=== PATIENT | female | born 1970 | race Caucasian/White ===

== ENCOUNTER → 2016-10-01 | Outpatient (CLI) | payer BC ==
--- NOTE | 2016-10-01 11:38 | DI ---
LEFT FOOT, 10/01/2016 8:41 AM: Clinical History: Left foot pain. Previous Exam: None at this facility. 3 views are submitted. There is a nondisplaced obliquely oriented fracture through the midshaft of th e proximal phalanx of the fourth toe. No other abnormality is identified. Reading: Fracture of the midshaft of the proximal phalanx of the fourth toe, nondisplaced.
== END ==
LOC: MOB RAD 09:42
PROVIDERS: ATTEND Physician Assistant
DX: M79.672 Pain in left foot (principal); M79.89 Other specified soft tissue disorders; S92.525A Nondisplaced fracture of middle phalanx of left lesser toe(s), initial encounter for closed fracture; W22.8XXA Striking against or struck by other objects, initial encounter; Y93.89 Activity, other specified
CPT/HCPCS: 73630

== ENCOUNTER → 2016-10-26 | Outpatient (CLI) | payer BC ==
[2016-10-26 08:09] LABS: BASOPHILS # (AUTO) 0.05 10*3/UL; BASOPHILS % (AUTO) 0.3 % (0-1); HEMATOCRIT 43.4 % (37.0-47.0); HEMOGLOBIN 14.1 g/dL (12.0-16.0); IMM GRAN % (AUTO) 0.3 % (0-5); IMM GRAN# (AUTO) 0.04 10*3/UL; LYMPHOCYTES # (AUTO) 1.43 10*3/uL; LYMPHOCYTES % (AUTO) 9.6 % (10-50); MEAN CORPUSCULAR HGB CONC 32.5 g/dL (33-37); MONOCYTES # (AUTO) 0.94 10*3/UL (0.3-0.8); MONOCYTES % (AUTO) 6.3 % (5-15); NEUTROPHILS # (AUTO) 12.35 10*3/UL; NEUTROPHILS % (AUTO) 82.5 % (50-80); RDW COEFFICIENT OF VARIATION 13.1 % (11.5-14.5); RED BLOOD COUNT 4.86 10^6/uL (4.20-5.40); WHITE BLOOD COUNT 14.96 10^3/uL (4.8-10.8)
[2016-10-26 08:11] LABS: BILIRUBIN,URINE NEGATIVE (NEG); CLARITY,URINE Slightly Clo (CLEAR); GLUCOSE, URINE (UA) NEGATIVE (NEG); LEUKOCYTE ESTERASE ,URINE NEGATIVE (NEG); NITRATE,URINE NEGATIVE (NEG); PH,URINE 5.5 (5.0-8.5); PROTEIN,URINE NEGATIVE (NEG); UROBILINOGEN,URINE 0.2 EU/dL (0.2)
[2016-10-26 08:13] LABS: OCCULT BLOOD,URINE TRACE (NEG)
[2016-10-26 08:13] LABS: PLATELET MORPHOLOGY COMMENT NORMAL MORPHOLOGY (NORM)
[2016-10-26 08:19] LABS: BACTERIA,URINE RARE; SQUAMOUS EPITHELIAL CELL,UR MANY
[2016-10-26 08:29] LABS: BILIRUBIN,TOTAL 0.5 mg/dL (0.3-1.2); CALCIUM 10.4 mg/dL (8.7-10.7); POTASSIUM 3.8 meq/L (3.8-5.2); TOTAL PROTEIN 7.5 g/dL (6.1-8.0)
--- NOTE | 2016-10-26 08:41 | DI ---
CT HEAD SCAN WITHOUT IV CONTRAST, 10/26/2016 7:57 AM : Clinical History: New onset seizure. Previous Exam: December 28, 2015 Scans are obtained from the foramen magnum to the vertex without IV contrast. The 4th, 3rd, and lateral ventricles are of normal size, shape, position, and contour. There are no abnormal areas of increased or decreased density. There is no intracranial hemorrhage. Bone window evaluation is normal. The paranasal sinuses are normal. READING: Normal non contrast CT head scan.
[2016-10-26 08:44] LABS: FREE T4 (FREE THYROXINE) 0.82 ng/dL (0.93-1.71)
[2016-10-26 11:32] LABS: URINE SAMPLE TYPE CLEAN CATCH URINE
== END ==
LOC: LAB 07:39
PROVIDERS: ATTEND Physician Assistant
DX: R56.9 Unspecified convulsions (principal); E03.9 Hypothyroidism, unspecified; R07.9 Chest pain, unspecified; R06.02 Shortness of breath; I27.2 Other secondary pulmonary hypertension; I35.0 Nonrheumatic aortic (valve) stenosis
CPT/HCPCS: 36415; 70450; 80053; 81001; 84146; 84439; 84443; 85025

== ENCOUNTER → 2016-11-03 | Outpatient (CLI) | payer BC ==
[2016-11-03 12:10] LABS: BILIRUBIN,URINE NEGATIVE (NEG); CLARITY,URINE CLEAR (CLEAR); GLUCOSE, URINE (UA) NEGATIVE (NEG); LEUKOCYTE ESTERASE ,URINE NEGATIVE (NEG); NITRATE,URINE NEGATIVE (NEG); OCCULT BLOOD,URINE NEGATIVE (NEG); PH,URINE 6.5 (5.0-8.5); PROTEIN,URINE NEGATIVE (NEG); UROBILINOGEN,URINE 0.2 mg/dL (0.2)
[2016-11-03 12:35] LABS: URINE SAMPLE TYPE CLEAN CATCH URINE
[2016-11-03 15:24] LABS: BACTERIA,URINE RARE; SQUAMOUS EPITHELIAL CELL,UR MODERATE
== END ==
LOC: MOB LAB 11:06
PROVIDERS: ATTEND Student in an Organized Health Care Education/Training Program
DX: R31.9 Hematuria, unspecified (principal)
CPT/HCPCS: 81001

== ENCOUNTER 2016-12-10 23:32 | Emergency (ER) | payer BC ==
[2016-12-10 23:45] VITALS: TEMP 97.8
[2016-12-10] MEDS ORDERED: NORMAL SALINE 10 ML SYRINGE FLUSH IVP PRN (23:46)
[2016-12-10] MEDS ORDERED: ONDANSETRON 4 MG/2 ML VIAL IVP ONE (23:46)
[2016-12-10] MEDS ORDERED: KETOROLAC 15 MG/1 ML VIAL IVP ONE (23:46)
[2016-12-10] MEDS ORDERED: Sodium Chloride 0.9% 1,000 ML PRIMARY IV ONE (23:46)
[2016-12-10] MEDS ORDERED: MORPHINE SULFATE 2 MG/1 ML IVP ONE (23:46)
[2016-12-11 00:03] LABS: BASOPHILS # (AUTO) 0.07 10*3/UL; BASOPHILS % (AUTO) 0.8 % (0-1); EOSINOPHILS # (AUTO) 0.35 10*3/UL; EOSINOPHILS % (AUTO) 4.2 % (0-8); LYMPHOCYTES # (AUTO) 2.62 10*3/uL; MEAN CORPUSCULAR HEMOGLOBIN 28.8 PG (27-31); MEAN CORPUSCULAR HGB CONC 31.7 g/dL (33-37); MEAN CORPUSCULAR VOLUME 90.7 FL (81-99); MEAN PLATELET VOLUME 9.4 FL (7.4-12.2); MONOCYTES # (AUTO) 0.71 10*3/UL (0.3-0.8); MONOCYTES % (AUTO) 8.6 % (5-15); NEUTROPHILS # (AUTO) 4.52 10*3/UL; NEUTROPHILS % (AUTO) 54.7 % (50-80); RED BLOOD COUNT 4.52 10^6/uL (4.20-5.40)
[2016-12-11 00:05] LABS: PLATELET MORPHOLOGY COMMENT NORMAL MORPHOLOGY (NORM); RBC MORPHOLOGY COMMENT NORMAL MORPHOLOGY (NORM); WBC MORPHOLOGY COMMENT NORMAL MORPHOLOGY (NORM)
[2016-12-11 00:09] LABS: BLOOD UREA NITROGEN 22 mg/dL (7-22); C-REACTIVE PROTEIN 1.4 mg/dL (0.0-0.9); CALCIUM 9.7 mg/dL (8.7-10.7); EST GLOMERULAR FILTRATION > 60 (>60 ml/min/1.73m(2)); MAGNESIUM 1.9 mg/dL (1.6-2.4); SERUM ALBUMIN 3.7 g/dL (3.5-4.8)
[2016-12-11 00:15] VITALS: RESP 18
--- NOTE | 2016-12-11 00:46 | DI ---
HISTORY: Right-sided pleuritic chest pain. COMPARISON: None available. TECHNIQUE: PA and Lateral radiographs were obtained of the chest. FINDINGS: No focal airspace opacity, significant pleural effusion or pneumothorax. Normal heart siz e. Multilevel thoracic degenerative changes. IMPRESSION: 1. No acute cardiopulmonary disease.
--- NOTE | 2016-12-11 01:49 | DI ---
HISTORY: Right-sided chest pain. No known trauma. Elevated d-dimer of 1.1. COMPARISON: None available. TECHNIQUE: IV contrast administration of volume of iodine-based contrast medium (isovue 100ml). CTA chest to opacify pulmonary arteries. MPR. Additional MIP images obtained. FINDINGS: Tubes/Lines: None. Lungs: Lungs are without focal consolidation, pleural effusion or pneumothorax. Bibasilar atelectas is is noted. Pulmonary emboli: No evidence of acute or chronic pulmonary emboli. Distal segmental/subsegmental br anch vessels incompletely opacified. Heart: No cardiomegaly or pericardial effusion. Vessels: Thoracic aorta and coronary arteries without gross abnormality. Mediastinum: No mediastinal adenopathy by size criteria. Abdomen: Limited evaluation of the upper abdominal viscera without acute abnormality identified. Sternum, ribs and thoracic spine: No acute osseous finding identified. Multilevel thoracic spine degenerative changes. IMPRESSION: 1. No central pulmonary emboli. 2. No acute cardiopulmonary process identified.
--- NOTE | 2016-12-11 01:50 | PDOC ---
General Adult HPI - General Chief Complaint: General Medical Stated Complaint: RIGHT RIB PAIN AFTER COUGHING Date Seen by Provider: 12/10/16 Time Seen by Provider: 23:40 Source: POSITIVE: Patient Exam Limitations: POSITIVE: No limitations Nurse's Notes Reviewed & Considered: Yes - History of Present Illness Initial Comment: The patient is a 46-year-old female who presents to the emergency department with right-sided chest wall and chest pain. She states that for the past week to 10 days she has had some upper respiratory symptoms including cough and congestion. She states that a couple of days ago she was coughing quite hard and subsequently developed some pain in her right lower chest. Her cough seems to have improved however this pain has intensified. She describes the pain as a sharp pain just underneath her right breast. This pain is worsened with taking a breath, coughing or with movement. She denies any associated abdominal pain, fevers or chills, left-sided chest pain, back pain or any other associated complaints. Have you received a tetanus shot in the past 10 years?: Yes - Patient Home Medications Home Medications: Home Medications EPINEPHrine Auto-Injector [Epipen Inj] 0.3 mg IM PRN PRN 07/16/12 Fluticasone Propionate [Flonase Allergy Relief] 2 spr AYO BID #1 spr 10/29/16 Guaifenesin/Codeine Phos [Cheratussin Ac Syrup] 5 - 10 ml PO Q4-6H #120 ml 10/29 Budesonide/Formoterol Fumarate [Symbicort] Sample #1 11/03/16 Levothyroxine Sodium 1 tab PO DAILY #90 tab 11/03/16 Hydrocodone/Acetaminophen [[place] 7.5-325 Tablet] 1 - 2 each PO Q6H PRN #15 tablet 12/11/16 Naproxen 500 mg PO Q12H PRN #20 tab 12/11/16 - Patient Allergies Allergies/Adverse Reactions: Allergies Allergy/AdvReac Type Severity Reaction Status Date / Time peanut Allergy Severe ANAPHLAXIS Verified 12/10/16 23:36 dicyclomine HCl [From Bentyl] AdvReac Mild UNKNOWN Verified 12/10/16 23:36 Past Medical History - heen HEENT History: Denies History Cardiovascular History: Hypertension, Other (please comment) Additional Cardiovasular History: aortic valve stenosis Respiratory History: Other (please comment) Additional Respiratory History: ANAPHYLAXIS TO PEANUTS Gastrointestinal History: Denies History Genitourinary History: Denies History Endocrine History: Hypothyroidism Musculoskeletal History: Osteoarthritis 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) Neurological History: Migraines Blood Disorders: Denies History Psychiatric History: Denies History History of Sexually Transmitted Diseases: No Female Reproductive History: Denies History Obstetrical History: Denies History Cancer History: Denies History In Past Year Been Physically Harmed or Verbally Threatened: No History of MDRO: No History of Other Communicable Diseases: No Tobacco Use: Never Smoker Alcohol Use: None Substance Use Type: None Previous Surgical History: Yes Type / Date of Surgery: FULL HYSTERECTOMY, RIGHT FOOT TENDON REPAIR Anesthesia Reactions: No Malignant Hyperthermia: No Significant Family History: No pertinent family hx Past Medical History Reviewed: Reviewed - No Changes ROS - Limitations ROS Limitations: No Limitations Constitution: DENIES: Chills, Fever Cardiovascular: REPORTS: Chest Pain (Right-sided pleuritic pain). DENIES: Edema Respiratory: REPORTS: Cough Non Productive (Seems to be getting better), Hurts To Breathe. DENIES: Shortness Of Breath Neurological: REPORTS: Denies Neuro Symptoms Gastrointestinal: DENIES: Abdominal Pain, Nausea, Vomitting Endocrine: REPORTS: Denies Symptoms Musculoskeletal: REPORTS: Denies MS Symptoms. DENIES: Calf Pain Eyes: REPORTS: Denies Symptoms ENT: REPORTS: Congestion (Seems to be getting better) Skin: DENIES: Rash General Adult Exam - General Appearance General Appearance: POSITIVE: Alert, Cooperative, No Acute Distress - HEENT HEENT: POSITIVE: Head Inspection Nml, Eyes Inspection Nml, Ears Inspection Nml, Pharynx Inspect. Nml, PERRL, EOMI - Neck Neck: POSITIVE: Normal Inspection. NEGATIVE: Lymphadenopathy - Respiratory Respiratory: POSITIVE: No Respiratory Distress, Breath Sounds Normal, Other ( She does have tenderness to the right lower anterior chest wall just underneath the right breast) - Cardiovascular Cardiovascular: POSITIVE: Regular Rate & Rhythm, No Murmur Peripheral Pulses: Dorsalis-pedis (R): 2+, Dorsalis-pedis (L): 2+ - Abdomen Abdomen: Soft: (All Quadrants), Denies Tenderness: (All Quadrants), No Distention: (All Quadrants) - Skin Skin: POSITIVE: Normal Color, No Rash - Extremities Extremity: Normal ROM: (All Extremities), Normal Inspection: (All Extremities) - Neurological / Psychological Neurological: POSITIVE: Oriented X3, Motor Normal, Sensation Normal General Adult Progress - Results Reviewed by me Xrays/CTs/US Reviewed by me: Yes Discussed with Radiologist: Yes Radiology Findings: Chest x-ray shows no acute findings. CT PE protocol is negative for PE, no other acute findings per radiologist. Lab Results Reviewed: Yes Lab Results:: Laboratory Results 12/10/16 Range/Units 23:55 WBC 8.28 (4.8-10.8) 10^3/uL RBC 4.52 (4.20-5.40) 10^6/uL Hgb 13.0 (12.0-16.0) g/dL Hct 41.0 (37.0-47.0) % MCV 90.7 (81-99) FL MCH 28.8 (27-31) PG MCHC 31.7 L (33-37) g/dL RDW Std Deviation 45.6 (39-50) fL RDW Coeff of Samia 14.1 (11.5-14.5) % Plt Count 269 (140-350) 10*3/uL MPV 9.4 (7.4-12.2) FL Immature Gran % (Auto) 0.1 (0-5) % Neut % (Auto) 54.7 (50-80) % Lymph % (Auto) 31.6 (10-50) % [place] % (Auto) 8.6 (5-15) % Eos % (Auto) 4.2 (0-8) % Baso % (Auto) 0.8 (0-1) % Immature Gran # (Auto) 0.01 10*3/UL Neut # (Auto) 4.52 10*3/UL Lymph # (Auto) 2.62 10*3/uL [place] # (Auto) 0.71 (0.3-0.8) 10*3/UL Eos # (Auto) 0.35 10*3/UL Baso # (Auto) 0.07 10*3/UL WBC Morphology Comment Normal morphology (NORM) Plt Morphology Comment Normal morphology (NORM) RBC Morph Comment Normal morphology (NORM) D-Dimer 1.10 H (0.00-0.59) mg/L Sodium 140 (135-145) meq/L Potassium 3.8 (3.8-5.2) meq/L Chloride 108 (98-112) meq/L Carbon Dioxide 24 (23-33) meq/L Anion Gap 8 (5-20) BUN 22 (7-22) mg/dL Creatinine 0.8 (0.50-1.20) mg/dL Estimated GFR > 60 (>60 ml/min/1.73m(2)) BUN/Creatinine Ratio 27.50 H (6-20) Glucose 101 (78-110) mg/dL Calculated Osmolality 292.0 (267-292) mOsm/kg Calcium 9.7 (8.7-10.7) mg/dL Magnesium 1.9 (1.6-2.4) mg/dL Total Bilirubin 0.3 (0.3-1.2) mg/dL AST 28 (8-39) IU/L ALT 34 (9-52) IU/L Alkaline Phosphatase 119 (38-126) IU/L C-Reactive Protein 1.4 H (0.0-0.9) mg/dL Total Protein 6.7 (6.1-8.0) g/dL Albumin 3.7 (3.5-4.8) g/dL Globulin 3.0 (2.50-4.10) g/dL Albumin/Globulin Ratio 1.20 L (1.3-2.0) mg/g - Patient's Progress MDM / ED Course: On presentation to the emergency room she is complaining of a pleuritic right- sided sharp chest pain. Vital signs including oxygen saturations and temperature were normal. Her chest x-ray was unremarkable and her blood work was all essentially unremarkable except for an elevated d-dimer. Subsequent CTA was negative for PE. She did receive Toradol 15 mg IV as well as morphine and Zofran for initial pain control. She stated that this took the edge off her pain. Her presentation is consistent with pleurisy and she did have a recent URI which is the likely etiology. It is possible she could have some component of chest wall pain or even a nondisplaced rib fracture from coughing. She was prescribed naproxen 500 mg twice a day as needed for pain as well as [place] as needed for severe pain. She is advised return to the emergency room if increased pain, shortness of breath, fever or productive cough, any worsening or change in symptoms. Recommend follow-up with primary care in 3-5 days. - Consult Counseled: POSITIVE: Patient, RE: Lab Results, RE: Radiology Results, RE: DX, RE : Need for F/U Patient Care Time - Estimated PCT Patient Care Time (In Minutes): 30 Vital Signs - Recent Vital Signs Vital Signs: Vital Signs (Last 8 hours) Temp Pulse Resp BP Pulse Ox 12/11/16 02:21 96 12/11/16 00:14 18 89 12/10/16 23:34 97.8 F 102 H 16 114/77 95 - VS Reviewed Vital Signs Reviewed: Yes Discharge Clinical Impression: Pleurisy Discharge Disposition: Discharged to Home Condition: Stable Prescriptions / Orders: Naproxen 500 mg PO Q12H PRN #20 tab PRN Reason: Pain Hydrocodone/Acetaminophen [[place] 7.5-325 Tablet] 1 - 2 each PO Q6H PRN #15 tablet PRN Reason: Pain Patient Instructions Given at Discharge: Pleurisy (ED) Additional Instructions: The CAT scan of your lungs did not reveal any evidence of blood clot or obvious fractured rib. The sharp right-sided pain is caused by pleurisy which may be related to your recent upper respiratory infection. You have been prescribed naproxen 500 mg twice a day with food which is a prescription anti- inflammatory. In addition you have been given [place] 7.5/325 which he can take one or 2 every 6 hours as needed for pain. Return to the emergency room if increased pain, fever, productive cough, any worsening or change in symptoms. Recommend follow-up with primary care in 5-7 days. Follow Up With: BRENDEN PEGUERO [Primary Care Provider] -
[2016-12-11] MEDS ORDERED: HYDROcodone-APAP 7.5 MG-325 MG TABLET PO SCH (02:15)
== END 2016-12-11 02:21 | disposition home or self-care (01) ==
LOC: ER 23:32
DX: R09.1 Pleurisy (principal); R05 Cough
CPT/HCPCS: 71020; 71275; 80053; 83735; 85025; 85379; 86140; 96374; 96375; 99283; J1885; J2270; J2405; J7030

== ENCOUNTER 2016-12-12 14:50 | Emergency (ER) | payer BC ==
[2016-12-12] MEDS ORDERED: Sodium Chloride 0.9% 1,000 ML PRIMARY IV ONE (15:10)
[2016-12-12] MEDS ORDERED: NORMAL SALINE 10 ML SYRINGE FLUSH IVP PRN (15:10)
[2016-12-12] MEDS ORDERED: ONDANSETRON 4 MG/2 ML VIAL IVP ONE (15:12)
[2016-12-12] MEDS ORDERED: HYDROmorphone 2 MG/1 ML IVP ONE (15:12)
--- NOTE | 2016-12-12 15:18 | PDOC ---
General Adult HPI - General Chief Complaint: General Medical Stated Complaint: RIB PAIN Date Seen by Provider: 12/12/16 Time Seen by Provider: 15:05 Source: POSITIVE: Patient Exam Limitations: POSITIVE: No limitations Nurse's Notes Reviewed & Considered: Yes - History of Present Illness Initial Comment: The patient is a 46-year-old female who is reevaluated in the emergency room with right-sided chest wall pain. She had developed right sided chest pain underneath the right breast after several days of coughing last week. She was evaluated here in the emergency room 2 nights ago with this complaint. Her lab work was essentially unremarkable at that time except for a mildly elevated d- dimer. She had a chest x-ray that was normal as well as a CTA which did not reveal any evidence of clot. She was diagnosed with pleurisy/chest wall pain and prescribed naproxen as well as hydrocodone. She states that the hydrocodone knocks her out and then naproxen does not seem to be helping at all. She has continued pain in the same location and to the same intensity as she has been having over the weekend. In addition now she has some swelling in both of her feet and legs. She does have a known history of aortic stenosis and is in the process of being evaluated for surgery on her valve. She states that the pain is primarily located underneath the right breast and is worse with coughing or taking a deep breath. Her cough is improved significantly from last week. She denies fevers or chills or productive cough, abdominal pain or increased shortness of breath. She states that the pain does occasionally radiate through to her back on the right side as well. Have you received a tetanus shot in the past 10 years?: Yes - Patient Home Medications Home Medications: Home Medications EPINEPHrine Auto-Injector [Epipen Inj] 0.3 mg IM PRN PRN 07/16/12 Levothyroxine Sodium 1 tab PO DAILY #90 tab 11/03/16 Hydrocodone/Acetaminophen [[place] 7.5-325 Tablet] 1 - 2 each PO Q6H PRN #15 tablet 12/11/16 Naproxen 500 mg PO Q12H PRN #20 tab 12/11/16 Diclofenac Sodium 75 mg PO BID PRN #20 tablet. 12/12/16 Oxycodone HCl/Acetaminophen [Percocet 7.5-325 Mg Tablet] 1 - 2 each PO Q6H PRN # 15 tablet 12/12/16 - Patient Allergies Allergies/Adverse Reactions: Allergies Allergy/AdvReac Type Severity Reaction Status Date / Time peanut Allergy Severe ANAPHLAXIS Verified 12/12/16 15:02 dicyclomine HCl [From Bentyl] AdvReac Mild UNKNOWN Verified 12/12/16 15:02 Past Medical History - heen HEENT History: Denies History Cardiovascular History: Hypertension, Other (please comment) Additional Cardiovasular History: aortic valve stenosis Respiratory History: Other (please comment) Additional Respiratory History: ANAPHYLAXIS TO PEANUTS Gastrointestinal History: Denies History Genitourinary History: Denies History Endocrine History: Hypothyroidism Musculoskeletal History: Osteoarthritis 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) Neurological History: Migraines Blood Disorders: Denies History Psychiatric History: Denies History History of Sexually Transmitted Diseases: No Cancer History: Denies History History of MDRO: No History of Other Communicable Diseases: No Alcohol Use: None Substance Use Type: None Previous Surgical History: Yes Type / Date of Surgery: FULL HYSTERECTOMY, RIGHT FOOT TENDON REPAIR Anesthesia Reactions: No Malignant Hyperthermia: No Significant Family History: No pertinent family hx Past Medical History Reviewed: Reviewed - No Changes ROS - Limitations ROS Limitations: No Limitations Constitution: DENIES: Chills, Fever Cardiovascular: REPORTS: Chest Pain (Right-sided pleuritic pain), Edema Respiratory: REPORTS: Cough Non Productive (Her cough is much improved from last week and is very minimal at this point), Hurts To Breathe. DENIES: Cough Productive, Shortness Of Breath Neurological: REPORTS: Denies Neuro Symptoms Gastrointestinal: DENIES: Abdominal Pain, Nausea, Vomitting Musculoskeletal: REPORTS: Lower Extremity Swelling (Bilateral) Eyes: REPORTS: Denies Symptoms ENT: REPORTS: Denies Symptoms Skin: DENIES: Rash General Adult Exam - General Appearance General Appearance: POSITIVE: Alert, Cooperative, No Acute Distress - HEENT HEENT: POSITIVE: Head Inspection Nml - Neck Neck: POSITIVE: Normal Inspection. NEGATIVE: Lymphadenopathy - Respiratory Respiratory: POSITIVE: No Respiratory Distress, Breath Sounds Normal - Cardiovascular Cardiovascular: POSITIVE: Regular Rate & Rhythm, Murmur (She does have a 3/6 systolic murmur heard best over the left sternal border) Peripheral Pulses: Dorsalis-pedis (R): 2+, Dorsalis-pedis (L): 2+ - Abdomen Abdomen: Soft: (All Quadrants), Denies Tenderness: (All Quadrants), No Hepatomegaly: (All Quadrants), No Distention: (All Quadrants) - Skin Skin: POSITIVE: Normal Color, No Rash - Extremities Extremity: Normal ROM: (All Extremities) Additional Extremities Details: Bilateral lower extremity edema - Neurological / Psychological Neurological: POSITIVE: Other (No focal neurologic deficits) General Adult Progress - Results Reviewed by me Xrays/CTs/US Reviewed by me: Yes Discussed with Radiologist: Yes Radiology Findings: Chest x-ray shows no acute findings per radiologist. Venous Doppler the lower extremities bilaterally are negative for DVT. Lab Results Reviewed: Yes Lab Results:: Laboratory Results 12/12/16 Range/Units 15:25 WBC 7.18 (4.8-10.8) 10^3/uL RBC 4.28 (4.20-5.40) 10^6/uL Hgb 12.4 (12.0-16.0) g/dL Hct 39.5 (37.0-47.0) % MCV 92.3 (81-99) FL MCH 29.0 (27-31) PG MCHC 31.4 L (33-37) g/dL RDW Std Deviation 46.5 (39-50) fL RDW Coeff of Samia 13.9 (11.5-14.5) % Plt Count 253 (140-350) 10*3/uL MPV 9.1 (7.4-12.2) FL Immature Gran % (Auto) 0.3 (0-5) % Neut % (Auto) 66.6 (50-80) % Lymph % (Auto) 22.1 (10-50) % [place] % (Auto) 6.7 (5-15) % Eos % (Auto) 3.6 (0-8) % Baso % (Auto) 0.7 (0-1) % Immature Gran # (Auto) 0.02 10*3/UL Neut # (Auto) 4.78 10*3/UL Lymph # (Auto) 1.59 10*3/uL [place] # (Auto) 0.48 (0.3-0.8) 10*3/UL Eos # (Auto) 0.26 10*3/UL Baso # (Auto) 0.05 10*3/UL WBC Morphology Comment Normal morphology (NORM) Plt Morphology Comment Normal morphology (NORM) RBC Morph Comment Normal morphology (NORM) Sodium 141 (135-145) meq/L Potassium 4.0 (3.8-5.2) meq/L Chloride 109 (98-112) meq/L Carbon Dioxide 24 (23-33) meq/L Anion Gap 8 (5-20) BUN 21 (7-22) mg/dL Creatinine 0.8 (0.50-1.20) mg/dL Estimated GFR > 60 (>60 ml/min/1.73m(2)) BUN/Creatinine Ratio 26.25 H (6-20) Glucose 90 (78-110) mg/dL Calculated Osmolality 294.0 H (267-292) mOsm/kg Calcium 9.8 (8.7-10.7) mg/dL Magnesium 1.8 (1.6-2.4) mg/dL Total Bilirubin 0.4 (0.3-1.2) mg/dL AST 20 (8-39) IU/L ALT 31 (9-52) IU/L Alkaline Phosphatase 111 (38-126) IU/L Troponin I < 0.012 (< 0.040) ng/mL C-Reactive Protein 1.1 H (0.0-0.9) mg/dL NT-Pro-B Natriuret Pep 436 H (0-125) PG/ML Total Protein 6.7 (6.1-8.0) g/dL Albumin 3.7 (3.5-4.8) g/dL Globulin 3.0 (2.50-4.10) g/dL Albumin/Globulin Ratio 1.20 L (1.3-2.0) mg/g EKG Interpreted/Reviewed By Me:: Yes EKG Interpretation:: POSITIVE: Normal Sinus Rhythm, Normal Rate, Normal Intervals, Normal [place], Normal QRS, Normal ST/T - Patient's Progress MDM / ED Course: An IV was established and the patient did receive Dilaudid 1 mg and Zofran 4 mg IV for pain. Her pain was improved after administration of Dilaudid. Current laboratory studies are discussed and are unremarkable. Her ultrasound of her lower extremities are negative for DVT. Her chest x-ray remains unchanged. At this point I do think that the swelling in her lower extremities is most likely secondary to naproxen. In addition her pain is consistent with chest wall pain/ pleurisy exacerbated by recent coughing. She was prescribed diclofenac 75 mg twice a day as needed for pain/anti-inflammatory. In addition she was given a prescription for Percocet 7.5/325 which she can take one or 2 every 6 hours as needed for severe pain. She is advised return to the emergency room if worsening pain, worsening shortness of breath, fever or productive cough, any worsening or change in symptoms. She is advised follow-up with primary care in 2-3 days. - Consult Counseled: POSITIVE: Patient, RE: Lab Results, RE: Radiology Results, RE: DX, RE : Need for F/U Patient Care Time - Estimated PCT Patient Care Time (In Minutes): 30 Vital Signs - Recent Vital Signs Vital Signs: Vital Signs (Last 8 hours) Temp Pulse Resp BP Pulse Ox 12/12/16 14:51 98.6 F 100 20 110/84 95 - VS Reviewed Vital Signs Reviewed: Yes Discharge Clinical Impression: Pleurisy, Chest wall pain Discharge Disposition: Discharged to Home Condition: Stable Prescriptions / Orders: Diclofenac Sodium 75 mg PO BID PRN #20 tablet. PRN Reason: Pain Oxycodone HCl/Acetaminophen [Percocet 7.5-325 Mg Tablet] 1 - 2 each PO Q6H PRN # 15 tablet PRN Reason: Pain Patient Instructions Given at Discharge: Pleurisy (ED), Chest Wall Pain (ED) Additional Instructions: The ultrasound was negative for blood clots in both legs. Your blood work remains normal and essentially unchanged from the other day. There does not appear to be any active heart issue. The chest x-ray also looked normal again today. A CAT scan was done of your lungs a day and a half ago which was negative for blood clot. This pain appears to be chest wall pain or pleurisy from recent coughing. The swelling in your legs I think is probably related to the naproxen. I would recommend discontinuing naproxen. Your prescribed diclofenac 75 mg twice a day as needed for pain/anti-inflammatory. In addition your prescribed Percocet 7.5/325 which he can take as needed for pain. Return to the emergency room if increased pain or shortness of breath, fever or productive cough, any worsening or change in symptoms. Recommend follow-up with primary care in 2-3 days. Follow Up With: BRENDEN PEGUERO [Primary Care Provider] -
--- NOTE | 2016-12-12 15:25 | EKG ---
[address] [address] Measurements Intervals [place] Rate: 93 P: 71 MA: 166 QRS: 61 QRSD: 89 T: 40 QT: 344 QTc: 395 Interpretive Statements SINUS RHYTHM Compared to ECG 05/16/2015 10:08:12 Myocardial infarct finding no longer present Electronically Signed On 12-12-16 17:14:01 MDT by Kentrell Santiago [email or web address]
[2016-12-12 15:28] LABS: BASOPHILS # (AUTO) 0.05 10*3/UL; BASOPHILS % (AUTO) 0.7 % (0-1); EOSINOPHILS # (AUTO) 0.26 10*3/UL; EOSINOPHILS % (AUTO) 3.6 % (0-8); HEMATOCRIT 39.5 % (37.0-47.0); HEMOGLOBIN 12.4 g/dL (12.0-16.0); LYMPHOCYTES # (AUTO) 1.59 10*3/uL; MEAN CORPUSCULAR HGB CONC 31.4 g/dL (33-37); MEAN CORPUSCULAR VOLUME 92.3 FL (81-99); MEAN PLATELET VOLUME 9.1 FL (7.4-12.2); MONOCYTES # (AUTO) 0.48 10*3/UL (0.3-0.8); MONOCYTES % (AUTO) 6.7 % (5-15); NEUTROPHILS # (AUTO) 4.78 10*3/UL; NEUTROPHILS % (AUTO) 66.6 % (50-80); RED BLOOD COUNT 4.28 10^6/uL (4.20-5.40)
[2016-12-12 15:32] LABS: PLATELET MORPHOLOGY COMMENT NORMAL MORPHOLOGY (NORM); RBC MORPHOLOGY COMMENT NORMAL MORPHOLOGY (NORM); WBC MORPHOLOGY COMMENT NORMAL MORPHOLOGY (NORM)
[2016-12-12 15:40] LABS: BLOOD UREA NITROGEN 21 mg/dL (7-22); BUN/CREATININE RATIO 26.25 (6-20); C-REACTIVE PROTEIN 1.1 mg/dL (0.0-0.9); CALCIUM 9.8 mg/dL (8.7-10.7); EST GLOMERULAR FILTRATION > 60 (>60 ml/min/1.73m(2)); MAGNESIUM 1.8 mg/dL (1.6-2.4); SERUM ALBUMIN 3.7 g/dL (3.5-4.8)
--- NOTE | 2016-12-12 15:53 | DI ---
XR CXR 2VW PA/LAT,12/12/2016 3:10 PM: Clinical History: Right sided pleuritic pain. Previous Exam: December 11, 2016 Findings: PA and lateral views of the chest are obtained, and demonstrate clear lungs. There is stable blunting of the costophrenic angles bilaterally. The cardiomediastinum and bony thorax are unremarkable. Impression: No significant change from prior.
[2016-12-12 15:56] VITALS: RESP 20; TEMP 98.6
--- NOTE | 2016-12-12 16:52 | DI ---
VENOUS DOPPLER ULTRASOUND OF BOTH LOWER EXTREMITIES, 12/12/2016 3:11 PM: Clinical History: Bilateral lower terminates swelling and elevated d-dimer's. Previous Exam: None at this facility. Technique: 2D real-time imaging is supplemented with color Doppler ultrasound. Compression and augmen tation maneuvers were performed. The deep venous system from the groin to the popliteal fossa for both legs is normal. The long saphen ous veins are also normal. Reading: Negative venous Doppler ultrasound of both lower extremities for deep vein thrombosis.
== END 2016-12-12 17:25 | disposition home or self-care (01) ==
LOC: ER 14:50
DX: R09.1 Pleurisy (principal); R22.43 Localized swelling, mass and lump, lower limb, bilateral; I35.0 Nonrheumatic aortic (valve) stenosis
CPT/HCPCS: 71020; 80053; 83735; 83880; 84484; 85025; 86140; 93005; 93010; 93970; 96374; 96375; 99283; J1170; J2405; J7030

== ENCOUNTER → 2017-02-07 | Outpatient (CLI) | payer BC | LOC: LAB 10:15 | PROVIDERS: ATTEND Student in an Organized Health Care Education/Training Program | DX: E03.9 Hypothyroidism, unspecified (principal) | CPT/HCPCS: 36415; 84443 ==

== ENCOUNTER → 2017-03-22 | Outpatient (CLI) | payer BC ==
--- NOTE | 2017-03-22 13:24 | DI ---
VENOUS DOPPLER ULTRASOUND OF THE RIGHT LOWER EXTREMITY, 03/22/2017 12:32 PM: Clinical History: Right leg pain and edema. Previous Exam: 12/12/2016. Technique: 2D real-time imaging is supplemented with color Doppler ultrasound. Compression and augmen tation maneuvers were performed. The deep venous system from the groin to the popliteal fossa is norm al. The greater saphenous vein is normal. Reading: Negative venous Doppler ultrasound of the right lower extremity. There has been no change.
== END ==
LOC: US 12:27
PROVIDERS: ATTEND Physician Assistant
DX: M79.604 Pain in right leg (principal); M79.89 Other specified soft tissue disorders
CPT/HCPCS: 93971

== ENCOUNTER → 2017-05-02 | Outpatient (CLI) | payer BC ==
[2017-05-02 15:24] LABS: FREE T4 (FREE THYROXINE) 0.62 ng/dL (0.93-1.71)
== END ==
LOC: MOB LAB 13:44
PROVIDERS: ATTEND Student in an Organized Health Care Education/Training Program
DX: E03.9 Hypothyroidism, unspecified (principal); I35.0 Nonrheumatic aortic (valve) stenosis
CPT/HCPCS: 36415; 83880; 84439; 84443